=== PATIENT | female | born 1970 | race Caucasian/White ===

== ENCOUNTER 2020-06-16 09:18 | Emergency (ER) | payer SELFPAY ==
[~2020-06-16] VITALS: Ht 162.6 cm; Wt 50.5 kg
[2020-06-16] MEDS ORDERED: SODIUM CHLORIDE 0.9% 1,000ML IVBOLUS ONE (10:30)
[2020-06-16] MEDS ORDERED: ONDANSETRON 2MG/ML, 2ML IVPush ONE (10:30)
[2020-06-16] MEDS ORDERED: SODIUM CHLORIDE FLUSH 10ML SYR IVF ONE (10:30)
[2020-06-16] MEDS ORDERED: MORPHINE SULFATE 4 MG/ML, 1ML IVPush PRN (10:30)
[2020-06-16] MEDS ORDERED: ONDANSETRON 2MG/ML, 2ML ONE (10:31)
[2020-06-16] MEDS ORDERED: MORPHINE SULFATE 4 MG/ML, 1ML ONE (10:31)
[2020-06-16 10:42] LABS: BASOPHILS % (AUTO) 1 % (0-1); EOSINOPHILS % (AUTO) 2 % (1-7); LYMPHOCYTES % (AUTO) 32 % (22-44); MEAN CORPUSCULAR HEMOGLOBIN 33.7 pg (27.0-34.8); MEAN CORPUSCULAR HGB CONC 34.7 g/dL (32.4-35.8); MEAN PLATELET VOLUME 6.8 fL (7.4-10.4); MONOCYTES % (AUTO) 8 % (2-9); NEUTROPHILS % (AUTO) 58 % (42-75); PLATELET COUNT 249 x10^3/uL (130-400); RED BLOOD COUNT 4.36 x10^6/uL (3.82-5.3); RED CELL DISTRIBUTION WIDTH 12.2 % (9.6-15.2)
[2020-06-16 10:43] LABS: MD NO
[2020-06-16 10:51] LABS: ALANINE AMINOTRANSFERASE 19 U/L (12-78); ALBUMIN 4.1 g/dL (3.4-5.0); ANION GAP 5 mmol/L (5-15); CHLORIDE 107 mmol/L (98-107); CREATININE 0.82 mg/dL (0.55-1.02)
[2020-06-16 10:55] LABS: ALKALINE PHOSPHATASE 60 U/L (45-117); BILIRUBIN,TOTAL 0.4 mg/dL (0.2-1.0); TOTAL PROTEIN 7.5 g/dL (6.4-8.2)
--- NOTE | 2020-06-16 12:59 | NUR ---
PT TO BR INDEPENDENTLY. UA OBTAINED AND SENT TO LAB. PT UNABLE TO GIVE STOOL SAMPLE AT THIS TIME. BP LOW. PT ASYMPTOMATIC. PROVIDER NOTIFIED.
[2020-06-16] MEDS ORDERED: OMNIPAQUE 350 MG/ML, 100ML BOTTLE ONE (17:48)
== END 2020-06-16 13:40 | disposition home or self-care (01) ==
LOC: MERGE 11:53 → ED 11:53
DX: R10.84 Generalized abdominal pain (principal); R19.7 Diarrhea, unspecified; R10.32 Left lower quadrant pain; R07.89 Other chest pain
CPT/HCPCS: 36415; 71045; 74177; 80053; 83690; 84703; 85025; 96361; 96374; 96375; 99285; J2270; J2405; J7030; Q9967